=== PATIENT | female | born 1970 | race Caucasian/White ===

== ENCOUNTER → 2021-02-20 | Outpatient (CLI) | payer BC | LOC: HEART 5 14:57 | DX: J45.909 Unspecified asthma, uncomplicated (principal); R94.39 Abnormal result of other cardiovascular function study; M19.90 Unspecified osteoarthritis, unspecified site; F17.210 Nicotine dependence, cigarettes, uncomplicated | CPT/HCPCS: 94010 ==

== ENCOUNTER → 2021-02-22 | Outpatient (CLI) | payer BC | LOC: SLEEP-COR 11:27 | DX: G47.33 Obstructive sleep apnea (adult) (pediatric) (principal); Z72.0 Tobacco use | CPT/HCPCS: 95810 ==